=== PATIENT | female | born 1960 | race Caucasian/White ===

== ENCOUNTER 2018-07-16 09:53 | Day surgery (SDC) | payer MEDICARE, MEDICAID ==
[2018-07-16 10:40] LABS: BEDSIDE GLUCOSE 88 MG/DL (70-105)
[2018-07-16] MEDS ORDERED: ONDANSETRON 4MG/2ML VIAL (J2405) As Ordered (11:07)
[2018-07-16] MEDS ORDERED: PROPOFOL 200 MG/20 ML VIAL As Ordered ×3 (11:07)
[2018-07-16] MEDS ORDERED: LIDOCAINE 2% INJ 100 MG/5 ML SDV (FOR ANES.) As Ordered (11:08)
[2018-07-16] MEDS ORDERED: fentaNYL 100 MCG/2 ML INJECTION (J3010) As Ordered (11:08)
[2018-07-16] MEDS ORDERED: MIDAZOLAM INJ 2 MG/2 ML VIAL (J2250) As Ordered (11:08)
[2018-07-16] MEDS ORDERED: KETAMINE HCL 200 MG/20 ML VIAL As Ordered (12:33)
[2018-07-16] MEDS: BUPIVACAINE HCL 0.5% 10 ML VIAL As Ordered (12:42)
[2018-07-16] MEDS: LIDOCAINE 1% SDV INJ 30 ML VIAL As Ordered (12:42)
[2018-07-16] MEDS: dexameTHASONE 4 MG/ML 1ML VIAL (J1100) As Ordered (13:14)
[2018-07-16] MEDS: LR 1,000 ML IV (13:14)
[2018-07-16] MEDS ORDERED: LABETALOL HCL 100 MG/20 ML VIAL As Ordered (13:16)
== END 2018-07-16 14:26 | disposition home or self-care (01) ==
LOC: M SDC 09:53
DX: M67.472 Ganglion, left ankle and foot (principal); I10 Essential (primary) hypertension; E11.9 Type 2 diabetes mellitus without complications; E78.5 Hyperlipidemia, unspecified; F32.9 Major depressive disorder, single episode, unspecified; F41.9 Anxiety disorder, unspecified; M12.9 Arthropathy, unspecified; M54.9 Dorsalgia, unspecified; E66.01 Morbid (severe) obesity due to excess calories; Z68.42 Body mass index [BMI] 45.0-49.9, adult; Z88.2 Allergy status to sulfonamides; Z79.899 Other long term (current) drug therapy; Z79.82 Long term (current) use of aspirin; Z79.84 Long term (current) use of oral hypoglycemic drugs; Z87.891 Personal history of nicotine dependence; Z87.440 Personal history of urinary (tract) infections; Z98.51 Tubal ligation status; Z96.653 Presence of artificial knee joint, bilateral
CPT/HCPCS: 28090

== ENCOUNTER → 2019-05-18 | Outpatient (REF) | payer MEDICARE, MEDICAID ==
[~2019-05-18] MED LIST: /FEXO18TA; ACTO75TA; ASPI81TA26 PO; ASPI81TA63; BENI20TA11; BUDE150T; CALC12502; CALC1TAB63 PO; COLA100C2; CYCL5TAB PO; FLUO10TA2; FURO20TA2; GABA800T4 PO; GLUC500T; HYDR-3713 PO; IMIT100T; KLOR10TA; LASI20TA3 PO; LIDO5DIS; LORA10TA PO; LORA10TA3 PO; METF500T4 PO; METO1TAB87 PO; OLME40TA PO; OMEP20CA4 PO; PERC5TAB8; POTA10TA67 PO; PRAV80TA2 PO; PREG100CA; PROAAER10 INH; ROPI0.5T PO; SERT-155 PO; SUCR1TAB56 PO; TESS100C; VALI5TAB; VENTAER; VYTO10TA5; ZANT150T; ZOLP5TAB PO
== END ==
LOC: M LAB REF 10:31
PROVIDERS: ATTEND Internal Medicine Endocrinology, Diabetes & Metabolism
DX: E04.2 Nontoxic multinodular goiter (principal)

== ENCOUNTER → 2020-07-18 | Outpatient (REF) | payer MEDICARE, MEDICAID ==
[~2020-07-18] MED LIST changes: +METF-838 PO; -METF500T4 PO; +OMEP1CAP73 PO; -OMEP20CA4 PO; -ROPI0.5T PO; +ROPI0.5T3 PO; -SERT-155 PO; +SERT50TA29 PO
== END ==
LOC: M LAB REF 17:22
PROVIDERS: ATTEND Internal Medicine Endocrinology, Diabetes & Metabolism
DX: E04.2 Nontoxic multinodular goiter (principal)

== ENCOUNTER → 2022-01-05 | Outpatient (CLI) | payer MEDICARE, MEDICAID ==
[~2022-01-05] MED LIST changes: +ALBU8.5H INH; +AMLO1TAB25 PO; +ATOR40TA75 PO; +FLUTISP; +TOLT2TAB12 PO; +VITMTA PO
== END ==
LOC: M LABSMTC 11:06
PROVIDERS: ATTEND Anesthesiology
DX: Z01.812 Encounter for preprocedural laboratory examination (principal); Z20.822 Contact with and (suspected) exposure to COVID-19

== ENCOUNTER 2022-01-10 06:05 | Day surgery (SDC) | payer MEDICARE, MEDICAID ==
[~2022-01-10] VITALS: Ht 175.3 cm; Wt 156.9 kg
[~2022-01-10 06:05] MED LIST changes: +LR 1,000 ML IV ONE; +ceFAZolin SOD 1 GM in D5W MINI-BAG PLUS 50 ML IV ONE; +ceFAZolin SOD 2 GM in IV 1 EA IV ONE
[2022-01-10] MEDS ORDERED: LIDOCAINE 1% SDV 30ML VIAL As Ordered ONE (07:10)
[2022-01-10] MEDS ORDERED: BUPIVACAINE HCL 0.5% 30 ML VIAL As Ordered ONE (07:10)
[2022-01-10] MEDS ORDERED: dexameTHASONE 4 MG/ML 1ML VIAL (J1100 PER 1MG) As Ordered ONE (07:10)
[2022-01-10] MEDS ORDERED: propofoL 200 MG/20 ML VIAL As Ordered ONE ×2 (07:11→07:48)
[2022-01-10] MEDS ORDERED: LIDOCAINE 2% 100MG/5ML SDV (FOR ANES.) As Ordered ONE (07:11)
[2022-01-10] MEDS ORDERED: MIDAZOLAM INJ 2MG/2ML VIAL (J2250 PER 1MG) As Ordered ONE (07:11)
[2022-01-10] MEDS ORDERED: fentaNYL 100 MCG/2 ML INJECTION As Ordered ONE (07:12)
[2022-01-10] MEDS ORDERED: HYDR-3713 PO (08:01)
[2022-01-10 08:40] VITALS: BP 131/60
== END 2022-01-10 08:47 | disposition home or self-care (01) ==
LOC: M SDC 06:05
PROVIDERS: ATTEND Podiatrist Foot & Ankle Surgery
DX: M67.472 Ganglion, left ankle and foot (principal); M72.2 Plantar fascial fibromatosis; M76.60 Achilles tendinitis, unspecified leg; M77.30 Calcaneal spur, unspecified foot; I10 Essential (primary) hypertension; E78.00 Pure hypercholesterolemia, unspecified; E11.9 Type 2 diabetes mellitus without complications; F41.9 Anxiety disorder, unspecified; J44.9 Chronic obstructive pulmonary disease, unspecified; G47.30 Sleep apnea, unspecified; R06.83 Snoring; Z87.891 Personal history of nicotine dependence; Z88.8 Allergy status to other drugs, medicaments and biological substances; Z88.2 Allergy status to sulfonamides; Z79.899 Other long term (current) drug therapy; Z79.82 Long term (current) use of aspirin; Z79.84 Long term (current) use of oral hypoglycemic drugs
CPT/HCPCS: 28090; 88305; J0690; J1100; J2250; J3010